=== PATIENT | female | born 1995 | race African-American/Black ===

== ENCOUNTER 2022-02-23 10:12 | Day surgery (SDC) | payer OTHER ==
[2022-02-23 10:33] VITALS: BMI 35.7
[2022-02-23] MEDS ORDERED: hydrALAZINE 20 MG/ML VIAL SLOW IVP PRN (11:18)
[2022-02-23 12:18] LABS: Bilirubin Neg (Negative); Blood, Urine Negative (Negative); Clarity Clear (Clear); Glucose, Urine (Dipstick) Normal (Negative); Ketone, Urine 15 mg/dL (Negative); Leukocyte 100 (Negative); Nitrite Negative (Negative); Protein, Urine (Dipstick) Negative (Neg-Trace)
[2022-02-23 12:35] LABS: RBC/HPF 0-3 HPF (0-3)
[2022-02-23 12:36] LABS: Bacteria/HPF 1+ HPF (None Seen); Mucous/LPF 1+ LPF (<2+); Squamous Epithelial 0-3 HPF (0-3)
[2022-02-23] MEDS ORDERED: Cephalexin 500 MG CAP PO SCH (18:00)
== END 2022-02-23 13:30 | disposition home or self-care (01) ==
LOC: CSHLD/OP 10:12
PROVIDERS: ATTEND Student in an Organized Health Care Education/Training Program
DX: O23.43 Unspecified infection of urinary tract in pregnancy, third trimester (principal); N39.0 Urinary tract infection, site not specified; Z3A.32 32 weeks gestation of pregnancy; Z79.899 Other long term (current) drug therapy
CPT/HCPCS: 81003; 81015; 87086; 99283

== ENCOUNTER 2022-04-14 10:11 | Outpatient (CLI) | payer MEDICAID, OTHER | END 2022-04-14 10:12 | disposition home or self-care (01) | LOC: CSHLAB 10:11 | PROVIDERS: ATTEND Advanced Practice Midwife | DX: Z20.822 Contact with and (suspected) exposure to COVID-19 (principal) | CPT/HCPCS: 87811 ==

== ENCOUNTER 2022-04-16 19:00 | Inpatient (IN) | payer MEDICAID, OTHER ==
[2022-04-20] MEDS ORDERED: Penicillin G Potassium 5 MILL.UNITS in Sodium Chloride 0.9% 100 ML IVPB SCH (03:06)
[2022-04-20] MEDS ORDERED: Acetaminophen 500 MG TAB PO PRN (03:06)
[2022-04-20] MEDS ORDERED: Promethazine HCl 25 MG/ML VIAL IM PRN ×2 (03:06→14:48)
[2022-04-20] MEDS ORDERED: HYDROcodone/Acetaminophen 5/325 mg Tablet PO PRN (03:06)
[2022-04-20] MEDS ORDERED: Ibuprofen 800 MG TAB PO PRN (03:06)
[2022-04-20] MEDS ORDERED: Ondansetron PF 4 MG/2 ML Vial IVP PRN ×2 (03:06→14:48)
[2022-04-20] MEDS ORDERED: hydrALAZINE 20 MG/ML VIAL SLOW IVP PRN ×2 (03:06→14:08)
[2022-04-20] MEDS ORDERED: Carboprost 250 MCG/ML AMP IM PRN (03:06)
[2022-04-20] MEDS ORDERED: Butorphanol Tartrate 1 MG/ML VIAL SLOW IVP PRN (03:06)
[2022-04-20] MEDS ORDERED: Methylergonovine 0.2 MG/ML VIAL IM PRN (03:06)
[2022-04-20] MEDS ORDERED: Lidocaine 1% (PF) 30 ML VIAL SC PRN (03:06)
[2022-04-20] MEDS ORDERED: Diphenoxylate HCl/Atropine Tablet PO PRN (03:06)
[2022-04-20] MEDS ORDERED: Misoprostol 200 MCG TAB PR PRN (03:06)
[2022-04-20] MEDS ORDERED: NS w/ Oxytocin 30 units 500 ML IV SCH ×2 (03:15)
[2022-04-20 03:32] LABS: Hemoglobin 10.3 g/dL (12.0-15.5); Mean Corpuscular HGB CONC 33.9 g/dL (32.0-36.0); Mean Corpuscular Hemoglobin 29.3 pg (27.0-33.0); Mean Corpuscular Volume 86.4 fl (81.6-98.3); Mean Platelet Volume 11.4 fl (7.4-10.4); Platelet Count 295 10x3/uL (150-450); RBC Distribution Width 13.3 % (11.5-14.5); Red Blood Cell (RBC) Count 3.52 10x6/uL (3.90-5.03); White Blood Cell (WBC) Count 13.6 10x3/uL (3.5-10.5)
[2022-04-20 03:54] VITALS: BMI 38.3
[2022-04-20 04:25] LABS: HBSAg Index 0.22 S/CO (0-0.99); Hep B Surf Ag Non-Reactive S/CO (NonReactive); Syphilis Antibody Nonreactive (Nonreactive); Syphilis Antibody Index 0.03 S/CO (<1.00 Non-Reactive)
[2022-04-20] MEDS: Misoprostol 100 MCG TAB VAG SCH ×3 (04:41→10:33)
[2022-04-20 09:47] LABS: ALT (SGPT) 6 U/L (8-55); AST (SGOT) 12 U/L (5-34); Albumin 3.1 g/dL (3.5-5.0); Alkaline Phosphatase 227 U/L (40-110); Anion Gap 13 mmol/L (10-20); BUN (Urea Nitrogen) 11 mg/dL (7.0-18.7); Bilirubin, Total 0.7 mg/dL (0.2-1.2); Calc. Creatinine Clearance 171 mL/min (70-130); Carbon Dioxide 21 mmol/L (22-29); Chloride 107 mmol/L (98-107); Estimated GFR 94; Globulin 3.3 g/dL (2.4-3.5); Glucose 101 mg/dL (70-105); Potassium 3.8 mmol/L (3.5-5.1); Protein, Total 6.4 g/dL (6.0-8.3); Sodium 137 mmol/L (136-145)
[2022-04-20] MEDS: Penicillin G 2.5 MILL.units 2.5 MILL.UNITS in Premix Bag 1 BAG IVPB SCH ×3 (12:06→20:12)
[2022-04-20] MEDS ORDERED: Magnesium Sulfate 20 gm/500 ml 20 GM/500 ML BAG ONE (12:59)
[2022-04-20] MEDS ORDERED: Calcium Gluc 4.6 MEQ/10 ML (100 MG/ML) SLOW IVP PRN (14:08)
[2022-04-20] MEDS ORDERED: Labetalol HCl 100 MG/20 ML VIAL SLOW IVP PRN ×3 (14:08)
[2022-04-20] MEDS ORDERED: Lorazepam 2 MG/ML VIAL SLOW IVP PRN (14:08)
[2022-04-20] MEDS ORDERED: Fentanyl 2 mcg/Bup 0.1% Cadd 100 ML ONE (14:39)
[2022-04-20] MEDS ORDERED: ePHEDrine Sulfate 50 MG/10 ML VIAL SLOW IVP PRN (14:48)
[2022-04-20] MEDS ORDERED: Moisturizing Cream (Eucerin) 113 GM JAR TOP PRN (14:48)
[2022-04-20] MEDS ORDERED: Acetaminophen 325 MG TAB PO PRN (14:48)
[2022-04-20] MEDS ORDERED: Naloxone HCl 0.4 mg/ml Vial IVP PRN ×2 (14:48)
[2022-04-20] MEDS ORDERED: diphenhydrAMINE 50 MG/ML VIAL IVP PRN (14:48)
[2022-04-20] MEDS ORDERED: Communication Order-Pharmacy FS SCH (15:00)
[2022-04-20] MEDS ORDERED: Lactated Ringer's 500 ML IV PRN (15:08)
[2022-04-20] MEDS: Fentanyl 2 mcg/Bupivacaine 0.1% Cassette 100 ML EPIDURAL SCH ×2 (15:13→22:15)
[2022-04-20] MEDS: Magnesium Sulfate 20 gm/500 ml 20 GM/500 ML BAG IVPB SCH (20:53)
[2022-04-21] MEDS: Penicillin G 2.5 MILL.units 2.5 MILL.UNITS in Premix Bag 1 BAG IVPB SCH (00:35)
[2022-04-21] MEDS ORDERED: Famotidine/PF 20 mg/2ml Vial SLOW IVP PRN (01:21)
[2022-04-21] MEDS ORDERED: Bicitra 30 ML UDCUP PO PRN (01:21)
[2022-04-21] MEDS ORDERED: Azithromycin 500 MG VIAL ONE (01:23)
[2022-04-21] MEDS ORDERED: CEFAZOLIN 2 GM VIAL ONE (01:23)
[2022-04-21] MEDS ORDERED: Carboprost 250 MCG/ML AMP ONE (01:27)
[2022-04-21] MEDS ORDERED: Tranexamic Acid 1,000 MG/10 ML VIAL ONE (01:27)
[2022-04-21] MEDS ORDERED: Misoprostol 200 MCG TAB ONE (01:27)
[2022-04-21] MEDS ORDERED: CEFAZOLIN 2 GM in Sodium Chloride 0.9% 100 ML IVPB SCH (01:30)
[2022-04-21] MEDS ORDERED: Azithromycin 500 MG in Sodium Chloride 0.9% 250 ML 250 ML IVPB SCH (01:30)
[2022-04-21] MEDS ORDERED: PHENYLEPHRINE-NS 100 MCG/ML 10 ML SYRINGE ONE (02:05)
[2022-04-21] MEDS ORDERED: Dexamethasone 4 mg/ml Vial ONE (02:08)
[2022-04-21] MEDS ORDERED: Ketorolac Tromethamine 30 MG/ML VIAL ONE (02:08)
[2022-04-21] MEDS ORDERED: Ondansetron PF 4 MG/2 ML Vial ONE (02:08)
[2022-04-21] MEDS ORDERED: Oxytocin 10 UNITS/ML VIAL ONE (02:16)
[2022-04-21] MEDS ORDERED: Phytonadione Neonatal 1 MG/0.5 ML AMP ONE (02:56)
[2022-04-21] MEDS ORDERED: Erythromycin Base 0.5% Oint 1 GM TUBE ONE (02:56)
[2022-04-21] MEDS ORDERED: HYDROmorphone 2 MG/ML VIAL SLOW IVP PRN (02:59)
[2022-04-21] MEDS ORDERED: Fentanyl 100 MCG/2 ML VIAL SLOW IVP PRN (02:59)
[2022-04-21] MEDS ORDERED: Meperidine HCl/PF 25 MG/ML VIAL SLOW IVP PRN (02:59)
[2022-04-21] MEDS ORDERED: Ondansetron HCl/PF 4 MG/2 ML Vial IVP PRN (02:59)
[2022-04-21] MEDS ORDERED: Ketorolac Tromethamine 30 MG/ML VIAL IVP SCH (03:00)
[2022-04-21] MEDS ORDERED: Bupivacaine/Epinephrine 0.25% 30 ML VIAL ONE (07:00)
[2022-04-21] MEDS ORDERED: Bupivacaine PF 0.5% 30 ML VIAL ONE (07:00)
[2022-04-21] MEDS: Lactated Ringer's 1,000 ML IV SCH (09:43)
[2022-04-21] MEDS: Magnesium Sulfate 20 gm/500 ml 20 GM/500 ML BAG IVPB SCH (10:44)
[2022-04-21] MEDS ORDERED: NIFEdipine XL 30 MG TAB PO SCH (17:23)
[2022-04-22] MEDS ORDERED: HYDROcodone/Acetaminophen 5/325 mg Tablet PO PRN ×2 (04:06)
[2022-04-22] MEDS ORDERED: hydrALAZINE 20 MG/ML VIAL SLOW IVP PRN (04:06)
[2022-04-22] MEDS ORDERED: diphenhydrAMINE 25 MG CAP PO PRN (04:06)
[2022-04-22] MEDS ORDERED: Lanolin Ointment 7 GM TUBE TOP PRN (04:06)
[2022-04-22] MEDS ORDERED: Misoprostol 200 MCG TAB PR PRN (04:06)
[2022-04-22] MEDS ORDERED: NS w/ Oxytocin 30 units 500 ML IV SCH (04:06)
[2022-04-22] MEDS ORDERED: Bisacodyl 10 MG SUPP PR PRN (04:06)
[2022-04-22] MEDS ORDERED: Acetaminophen 325 MG TAB PO PRN (04:06)
[2022-04-22] MEDS ORDERED: Ondansetron PF 4 MG/2 ML Vial IVP PRN (04:06)
[2022-04-22] MEDS: Misoprostol 100 MCG TAB VAG SCH ×2 (04:08→04:09)
[2022-04-22] MEDS: Lactated Ringer's 1,000 ML IV SCH (04:08)
[2022-04-22] MEDS: Penicillin G 2.5 MILL.units 2.5 MILL.UNITS in Premix Bag 1 BAG IVPB SCH ×2 (04:09→04:10)
[2022-04-22] MEDS ORDERED: Docusate 100 MG CAP PO SCH (04:15)
[2022-04-22] MEDS ORDERED: Prenatal Vitamin 1 TAB PO SCH (04:15)
[2022-04-22] MEDS ORDERED: Ferrous Sulfate 325 MG TAB PO SCH (04:15)
[2022-04-22] MEDS ORDERED: Ibuprofen 800 MG TAB PO SCH ×2 (04:15→14:00)
[2022-04-22] MEDS: Ibuprofen 100 MG/5 ML UDCUP PO SCH ×3 (06:20→21:08)
[2022-04-22] MEDS: NIFEdipine XL 30 MG TAB PO SCH (07:56)
[2022-04-22] MEDS: Hydrocodone-Acetamin 15 ML UDCUP PO PRN ×2 (08:31→12:28)
[2022-04-22] MEDS ORDERED: Simethicone Chewable 80 MG TAB PO PRN (20:49)
[2022-04-22] MEDS: Docusate 100 MG CAP PO SCH (21:09)
[2022-04-22] MEDS: Ferrous Sulfate 325 MG TAB PO SCH (21:23)
[2022-04-23 06:01] LABS: Hemoglobin 8.2 g/dL (12.0-15.5); Mean Corpuscular Hemoglobin 28.9 pg (27.0-33.0); Mean Corpuscular Volume 90.1 fl (81.6-98.3); Platelet Count 295 10x3/uL (150-450); RBC Distribution Width 13.2 % (11.5-14.5); Red Blood Cell (RBC) Count 2.84 10x6/uL (3.90-5.03); White Blood Cell (WBC) Count 11.7 10x3/uL (3.5-10.5)
[2022-04-23] MEDS: Docusate 100 MG CAP PO SCH ×2 (08:55→22:22)
[2022-04-23] MEDS: NIFEdipine XL 30 MG TAB PO SCH (08:55)
[2022-04-23] MEDS: Hydrocodone-Acetamin 15 ML UDCUP PO PRN ×2 (08:56→14:52)
[2022-04-23] MEDS: Ferrous Sulfate 325 MG TAB PO SCH ×2 (08:58→22:13)
[2022-04-23] MEDS: Ibuprofen 100 MG/5 ML UDCUP PO SCH ×3 (09:10→22:31)
[2022-04-23] MEDS: Prenatal Vitamin 1 TAB PO SCH (09:13)
[2022-04-23] MEDS: Penicillin G 2.5 MILL.units 2.5 MILL.UNITS in Premix Bag 1 BAG IVPB SCH (16:38)
[2022-04-23] MEDS: Misoprostol 100 MCG TAB VAG SCH (16:39)
[2022-04-23] MEDS: Lactated Ringer's 1,000 ML IV SCH (16:40)
[2022-04-23] MEDS ORDERED: hydrALAZINE 20 MG/ML VIAL SLOW IVP PRN (16:47)
[2022-04-24] MEDS: Ibuprofen 100 MG/5 ML UDCUP PO SCH (06:41)
[2022-04-24] MEDS: NIFEdipine XL 30 MG TAB PO SCH (08:49)
[2022-04-24] MEDS: Docusate 100 MG CAP PO SCH (08:58)
[2022-04-24] MEDS: Ferrous Sulfate 325 MG TAB PO SCH (08:59)
[2022-04-24] MEDS: Prenatal Vitamin 1 TAB PO SCH (08:59)
[2022-04-24 09:24] VITALS: BP 139/86; TEMP 98.5
== END 2022-04-24 12:00 | disposition home or self-care (01) | DRG 788 ==
LOC: CSHLD 04-20 02:36 → CSHPP 04-22 03:30
PROVIDERS: ADMIT Student in an Organized Health Care Education/Training Program; ATTEND Advanced Practice Midwife
PROC: 3E0P7VZ Introduction of Hormone into Female Reproductive, Via Natural or Artificial Opening (ICD-10-PCS; 2022-04-20)
PROC: 10H07YZ Insertion of Other Device into Products of Conception, Via Natural or Artificial Opening (ICD-10-PCS; 2022-04-20)
PROC: 10907ZC Drainage of Amniotic Fluid, Therapeutic from Products of Conception, Via Natural or Artificial Opening (ICD-10-PCS; 2022-04-20)
PROC: 3E033VJ Introduction of Other Hormone into Peripheral Vein, Percutaneous Approach (ICD-10-PCS; 2022-04-20)
PROC: 10D00Z1 Extraction of Products of Conception, Low, Open Approach (ICD-10-PCS; principal; 2022-04-21)
PROC: 3E0334Z Introduction of Serum, Toxoid and Vaccine into Peripheral Vein, Percutaneous Approach (ICD-10-PCS; 2022-04-22)
DX: O26.893 Other specified pregnancy related conditions, third trimester (principal); Z67.41 Type O blood, Rh negative; Z3A.40 40 weeks gestation of pregnancy; Z37.0 Single live birth; O76 Abnormality in fetal heart rate and rhythm complicating labor and delivery; O99.824 Streptococcus B carrier state complicating childbirth; E66.9 Obesity, unspecified; Z79.899 Other long term (current) drug therapy; O99.214 Obesity complicating childbirth; D56.3 Thalassemia minor; O99.02 Anemia complicating childbirth; O14.95 Unspecified pre-eclampsia, complicating the puerperium; O67.9 Intrapartum hemorrhage, unspecified
CPT/HCPCS: 36415; 51702; 80053; 85027; 85461; 86780; 86850; 86900; 86901; 87340; 90384; 96372; J1100; J1885; J2405; J2540; J2590; J3475; J3490; J7120; S0020